=== PATIENT | female | born 1970 ===

== ENCOUNTER 2016-09-18 22:10 | Emergency (ER) | payer BC, MEDICAID ==
[2016-09-18] MEDS ORDERED: MORPHINE SULFATE 10 MG/ML INJ IV ONE (23:32)
[2016-09-18] MEDS ORDERED: ONDANSETRON HCL INJ/PF 4 MG/2 ML SDV IV ONE (23:32)
[2016-09-18] MEDS ORDERED: NORMAL SALINE 1000 ML 1,000 ML IV ONE (23:33)
--- NOTE | 2016-09-18 23:36 | ER Document Report ---
ED GI/ - General Chief Complaint: Flank Pain Stated Complaint: ABDOMINAL PAIN Time seen by provider: 23:30 Notes: Patient is a 45-year-old female that comes emergency department for chief complaint of sudden onset of right mid to lower abdominal pain with nausea, she states the pain is constant but intermittently very severe. She states she has passed kidney stones in the past, has a history of ovarian cysts, has had a partial hysterectomy and . She denies any daily medications. TRAVEL OUTSIDE OF THE [place] IN LAST 30 DAYS: No - Related Data Allergies/Adverse Reactions: No Known Allergies Allergy (Verified 05/25/13 10:52) Past Medical History - General Information source: Patient - Social History Smoking Status: Former Smoker Drug Abuse: None Lives with: Family Family History: Reviewed & Not Pertinent Patient has suicidal ideation: No Patient has homicidal ideation: No - Past Medical History Cardiac Medical History: Reports: Hx Hypertension Denies: Hx Coronary Artery Disease, Hx Heart Attack Pulmonary Medical History: Denies: Hx Asthma, Hx Bronchitis, Hx COPD, Hx Pneumonia, Hx Tuberculosis Neurological Medical History: Reports: Hx Migraine, Hx Seizures. Denies: Hx Cerebrovascular Accident Renal/ Medical History: Denies: Hx Peritoneal Dialysis Musculoskeltal Medical History: Denies Hx Arthritis Past Surgical History: Reports: Hx Section - x2, Hx Hysterectomy - Immunizations Hx Diphtheria, Pertussis, Tetanus Vaccination: No Review of Systems - Review of Systems Constitutional: No symptoms reported EENT: No symptoms reported Cardiovascular: No symptoms reported Respiratory: No symptoms reported Gastrointestinal: See HPI Genitourinary: See HPI Female Genitourinary: See HPI Musculoskeletal: No symptoms reported Skin: No symptoms reported Hematologic/Lymphatic: No symptoms reported Neurological/Psychological: No symptoms reported Physical Exam - Vital signs Vitals: Temp Pulse Resp BP Pulse Ox 98.6 F 86 20 179/111 H 96 09/18/16 22:22 09/18/16 22:22 09/18/16 22:22 09/18/16 22:22 09/18/16 22:22 Interpretation: Normal - General General appearance: Alert, Anxious In distress: Mild - Patient appears mildly uncomfortable, no severe distress - HEENT Head: Normocephalic, Atraumatic Eyes: Normal Conjunctiva: Normal Extraocular movements intact: Yes Eyelashes: Normal Pupils: PERRL Nasal: Normal Mouth/Lips: Normal Mucous membranes: Normal Pharynx: Normal Neck: Normal - Respiratory Respiratory status: No respiratory distress Chest status: Nontender Breath sounds: Normal. No: Decreased air movement Chest palpation: Normal - Cardiovascular Rhythm: Regular. No: Tachycardia Heart sounds: Normal auscultation, S1 appreciated, S2 appreciated Murmur: No - Abdominal Inspection: Normal Distension: No distension Bowel sounds: Normal Tenderness: Tender - Patient is tender in the right lower quadrant on examination with slight guarding, appears to be more tender in the abdomen compared to the pelvis, otherwise completely normal abdominal exam - Back Back: Normal, Nontender. No: Tender, CVA tenderness - No overt CVA tenderness - Extremities General upper extremity: Normal inspection, Nontender, Normal color, Normal ROM , Normal temperature General lower extremity: Normal inspection, Nontender, Normal color, Normal ROM , Normal temperature, Normal weight bearing. No: Von's sign - Neurological Neuro grossly intact: Yes Cognition: Normal Orientation: AAOx4 April Coma Scale Eye Opening: Spontaneous [place] Coma Scale Verbal: Oriented [place] Coma Scale Motor: Obeys Commands [place] Coma Scale Total: 15 Speech: Normal Motor strength normal: LUE, RUE, LLE, RLE Sensory: Normal - Psychological Associated symptoms: Normal affect, Normal mood - Skin Skin Temperature: Warm Skin Moisture: Dry Skin Color: Normal Course - Re-evaluation Re-evalutation: CBC, chemistry, urinalysis generally unremarkable. Minimal blood in the urine. Based on patient's history and the radiation of pain to the flank I suspect there is a kidney stone, especially since pain is intermittently much worse. Vital signs unremarkable except for some hypertension. Discussed with patient, will perform CT without contrast to evaluate for stone. CT unremarkable, no nephro or ureterolithiasis, normal appendix, shows what appears to be a enlarged right ovarian abnormality. Patient is much more comfortable after medications, after discussion will perform ultrasound to better characterize and rule out torsion. Ultrasound shows normal Doppler flow to the ovary, hemorrhagic cyst versus mass , no free fluid or evidence of infection/abscess. Discussed report with patient, providing her a copy of this, patient states she feels comfortable and she wants to go home, she states that she will follow closely with an [employer] if I give her a referral and she also has a primary care that she will see later today (already scheduled). I discussed return precautions in detail including signs consistent with torsion, patient states understanding and agreement. - Vital Signs Vital signs: Temp Pulse Resp BP Pulse Ox 98.8 F 88 20 182/96 H 98 09/19/16 04:59 09/19/16 04:59 09/19/16 04:59 09/19/16 04:59 09/19/16 04:59 - Laboratory Result Diagrams: 09/19/16 00:35 09/19/16 00:35 Laboratory results interpreted by me: 09/18/16 09/19/16 23:19 00:35 RBC 5.47 H Hgb 16.8 H Hct 47.4 H Urine Blood SMALL H Discharge - Discharge Clinical Impression: Nausea Abdominal pain Qualifiers: Abdominal location: right lower quadrant Qualified Code(s): R10.31 - Right lower quadrant pain Condition: Stable Disposition: HOME, SELF-CARE Additional Instructions: Your workup does not show any kidney stones, however it does show approximately a 4 cm abnormality on your right ovary, this could be a bleeding cyst, this could also be a mass which could develop into cancer. Please follow-up with your primary and [employer]NAGER to have this monitored, I recommend an ultrasound in 6 weeks to make sure this has resolved or this will have to be dealt with. Take pain medication as directed, return to the emergency department for any concerning or worsening symptoms including severe pain, vomiting, fever, etc. Prescriptions: Oxycodone HCl/Acetaminophen [Percocet 5-325 mg Tablet] 1 - 2 tab PO Q4H PRN #25 tablet PRN Reason: Forms: Elevated Blood Pressure Referrals: [facility] [Provider Group] - Follow up as needed
[2016-09-19 00:31] LABS: APPEARANCE,URINE CLEAR; BILIRUBIN,URINE NEGATIVE (NEGATIVE); GLUCOSE, URINE NEGATIVE (NEGATIVE); KETONES,URINE NEGATIVE (NEGATIVE); LEUKOCYTE ESTERASE,URINE NEGATIVE (NEGATIVE); NITRITE,URINE NEGATIVE (NEGATIVE); PROTEIN,URINE NEGATIVE (NEGATIVE); URINE SPECIFIC GRAVITY 1.004; UROBILINOGEN,URINE NEGATIVE mg/dL (<2.0)
[2016-09-19 00:47] LABS: ABSOLUTE BASOPHILS # (AUTO) 0.1 10^3/uL (0.0-0.2); ABSOLUTE EOSINOPHILS # (AUTO) 0.1 10^3/uL (0.0-0.6); ABSOLUTE LYMPHOCYTES (AUTO) 2.1 10^3/uL (0.5-4.7); ABSOLUTE MONOCYTES (AUTO) 0.3 10^3/uL (0.1-1.4); ABSOLUTE NEUT (AUTO) 3.7 10^3/uL (1.7-8.2); BASOPHILS % (AUTO) 1.1 % (0-2); HEMATOCRIT 47.4 % (36.0-47.0); HEMOGLOBIN 16.8 g/dL (12.0-15.5); LYMPHOCYTES % (AUTO) 33.7 % (13-45); MEAN CORPUSCULAR HEMOGLOBIN 30.7 pg (27.0-33.4); MEAN CORPUSCULAR HGB CONC 35.4 g/dL (32.0-36.0); MEAN CORPUSCULAR VOLUME 87 fl (80-97); RED BLOOD COUNT 5.47 10^6/uL (3.72-5.28); RED CELL DISTRIBUTION WIDTH 12.5 % (11.5-14.0); SEGMENTED NEUTROPHILS % (AUTO) 59.2 % (42-78); WHITE BLOOD COUNT 6.3 10^3/uL (4.0-10.5)
[2016-09-19 00:58] LABS: ALANINE AMINOTRANSFERASE 33 U/L (9-52); ALBUMIN 4.7 g/dL (3.5-5.0); ALKALINE PHOSPHATASE 102 U/L (38-126); ANION GAP 15 (5-19); ASPARTATE AMINO TRANSFERASE 30 U/L (14-36); BILIRUBIN,DIRECT 0.1 mg/dL (0.0-0.4); BILIRUBIN,TOTAL 1.1 mg/dL (0.2-1.3); BLOOD UREA NITROGEN 7 mg/dL (7-20); CALCIUM 9.9 mg/dL (8.4-10.2); CARBON DIOXIDE 24 mmol/L (22-30); CHLORIDE 103 mmol/L (98-107); CREATININE RESULT 0.77 mg/dL (0.52-1.25); GLUCOSE 99 mg/dL (75-110); POTASSIUM 4.2 mmol/L (3.6-5.0); SODIUM 141.7 mmol/L (137-145); TOTAL PROTEIN 7.9 g/dL (6.3-8.2)
[2016-09-19] MEDS ORDERED: KETOROLAC TROMETHAMINE INJ/PF 30 MG/1 ML SDV IV ONE (01:05)
[2016-09-19 05:00] VITALS: BP 182/96
== END 2016-09-19 05:00 | disposition home or self-care (01) ==
LOC: ER 22:10
DX: R10.31 Right lower quadrant pain (principal); R11.0 Nausea; I10 Essential (primary) hypertension; Z87.442 Personal history of urinary calculi; Z90.711 Acquired absence of uterus with remaining cervical stump; Z87.42 Personal history of other diseases of the female genital tract; Z87.891 Personal history of nicotine dependence
CPT/HCPCS: 99284; 96361; 96374; 96375; 36415; 85025; 80053; 81001; 76830; 93976; 76380; J1885; J2270; J2405; J7030